=== PATIENT | male | born 1965 | race Native Hawaiian/Other Pacific Islander ===

== ENCOUNTER 2021-02-18 11:34 | Outpatient (CLI) | payer OTHER | END 2021-02-18 19:46 | disposition home or self-care (01) | LOC: RAD 11:34 | PROVIDERS: ATTEND Registered Nurse | DX: M54.2 Cervicalgia (principal) ==

== ENCOUNTER 2021-03-27 15:06 | Outpatient (CLI) | payer BC | END 2021-03-27 23:12 | disposition home or self-care (01) | LOC: RAD 15:06 | DX: M54.2 Cervicalgia (principal) ==